=== PATIENT | male | born 1945 | race Caucasian/White ===

== ENCOUNTER → 2024-08-14 10:38 | Outpatient (REF) | payer MEDICARE, SELFPAY | LOC: HWRAD 10:38 | PROVIDERS: ATTENDING PHYSICIAN Chiropractor; FAMILY PHYSICIAN Student in an Organized Health Care Education/Training Program | DX: M79.601 Pain in right arm (principal); M54.12 Radiculopathy, cervical region; M54.50 Low back pain, unspecified; M79.604 Pain in right leg; M99.01 Segmental and somatic dysfunction of cervical region; M99.02 Segmental and somatic dysfunction of thoracic region; M62.40 Contracture of muscle, unspecified site; M99.03 Segmental and somatic dysfunction of lumbar region; M53.2X7 Spinal instabilities, lumbosacral region | CPT/HCPCS: 72050; 72072; 72110 ==